=== PATIENT | female | born 1930 | race Caucasian/White ===

== ENCOUNTER 2017-12-30 10:50 | Emergency (ER) | payer OTHER ==
[2017-12-30 11:24] LABS: ADD MAN DIFF? NO
[2017-12-30 11:28] LABS: BASOPHILS % 0.1 % (0.0-2.0); EOSINOPHILS % 0.1 % (0.0-7.0); HEMATOCRIT 33.2 % (37.0-47.0); HEMOGLOBIN 9.7 g/dl (12.0-16.0); LYMPHOCYTES % 7.2 % (15.0-51.0); MEAN CORPUSCULAR HEMOGLOBIN 23.3 pg (29.0-33.0); MEAN CORPUSCULAR HGB CONC 29.2 g/dl (32.0-37.0); MEAN CORPUSCULAR VOLUME 79.8 fl (82.0-101.0); MEAN PLATELET VOLUME 10.7 fl (7.4-10.4); MONOCYTE # 1.4 10^3/ul (0.3-0.9); MONOCYTES % 9.7 % (0.0-11.0); NEUTROPHIL # 11.6 10^3/ul (1.6-7.5); NEUTROPHILS % 82.1 % (39.0-77.0); PLATELET COUNT 153 10^3/UL (140-415); RED BLOOD COUNT 4.16 10^6/ul (4.20-5.40); RED CELL DISTRIBUTION WIDTH 20.7 % (11.5-14.5)
[2017-12-30 11:28] LABS: WHITE BLOOD COUNT 14.1 10^3/ul (4.8-10.8)
[2017-12-30] MEDS: DILTIAZEM 50 MG INJ IV (11:49)
[2017-12-30 11:54] LABS: ANION GAP 16 (8-16); BLOOD UREA NITROGEN 64 mg/dl (7-20); CALCIUM 8.5 mg/dl (8.4-10.2); CARBON DIOXIDE 37 mmol/L (21-31); CHLORIDE 91 mmol/L (97-110); CREATININE 2.34 mg/dl (0.44-1.00); POTASSIUM 3.4 mmol/L (3.5-5.1); SODIUM 141 mmol/L (135-144)
[2017-12-30 11:58] LABS: GLUCOSE 407 mg/dl (70-220)
[2017-12-30 12:03] LABS: TROPONIN-I 0.042 ng/ml (0.000-0.120)
== END 2017-12-30 15:46 | disposition home or self-care (01) ==
LOC: E/R 10:50
DX: I48.91 Unspecified atrial fibrillation (principal); D64.9 Anemia, unspecified; I10 Essential (primary) hypertension; E11.9 Type 2 diabetes mellitus without complications; Z95.0 Presence of cardiac pacemaker
CPT/HCPCS: 36415; 71045; 80048; 84484; 85025; 96374; 99291-25; 99406

== ENCOUNTER 2018-01-07 11:43 | Inpatient (IN) | payer OTHER ==
[~2018-01-07 11:43] MED LIST: CA CHLORIDE 10% 10 ML SYRINGE; ETOMIDATE 20 MG INJ; NA BICARBONATE 8.4% 50 ML SYG; SUCCINYLCHOLINE CHLORIDE 100 MG/5 ML SYG IV
[2018-01-07] MEDS: AMIODARONE 150MG/D5W BOLUS 100 ML IV ×2 (12:08→12:45)
[2018-01-07 12:10] LABS: ADD MAN DIFF? NO
[2018-01-07 12:13] LABS: WHITE BLOOD COUNT 9.6 10^3/ul (4.8-10.8)
[2018-01-07 12:14] LABS: BASOPHILS % 0.2 % (0.0-2.0); EOSINOPHILS % 0.2 % (0.0-7.0); HEMATOCRIT 32.4 % (37.0-47.0); HEMOGLOBIN 9.5 g/dl (12.0-16.0); LYMPHOCYTES # 1.2 10^3/ul (0.8-2.9); LYMPHOCYTES % 12.1 % (15.0-51.0); MEAN CORPUSCULAR HEMOGLOBIN 23.2 pg (29.0-33.0); MEAN CORPUSCULAR HGB CONC 29.3 g/dl (32.0-37.0); MEAN CORPUSCULAR VOLUME 79.2 fl (82.0-101.0); MEAN PLATELET VOLUME 11.1 fl (7.4-10.4); MONOCYTE # 0.8 10^3/ul (0.3-0.9); MONOCYTES % 8.5 % (0.0-11.0); NEUTROPHIL # 7.5 10^3/ul (1.6-7.5); NEUTROPHILS % 78.4 % (39.0-77.0); PLATELET COUNT 224 10^3/UL (140-415); RED BLOOD COUNT 4.09 10^6/ul (4.20-5.40); RED CELL DISTRIBUTION WIDTH 20.3 % (11.5-14.5)
[2018-01-07 12:34] LABS: INR 1.67; PARTIAL THROMBOPLASTIN TIME 38.3 Sec (25.0-35.0); PT RATIO 1.6
[2018-01-07 12:37] LABS: MAGNESIUM 1.8 mg/dl (1.7-2.5)
[2018-01-07 12:39] LABS: ALBUMIN/GLOBULIN RATIO 0.76; ANION GAP 15 (8-16)
[2018-01-07 12:42] LABS: POTASSIUM 4.1 mmol/L (3.5-5.1); SODIUM 140 mmol/L (135-144)
[2018-01-07 12:43] LABS: ALANINE AMINOTRANSFERASE 24 IU/L (13-69); ALKALINE PHOSPHATASE 127 IU/L (42-121); ASPARTATE AMINO TRANSFERASE 15 IU/L (15-46); BILIRUBIN,INDIRECT 0.4 mg/dl (0-1.1); BILIRUBIN,TOTAL 0.4 mg/dl (0.2-1.3); BLOOD UREA NITROGEN 77 mg/dl (7-20); CALCIUM 8.4 mg/dl (8.4-10.2); CARBON DIOXIDE 32 mmol/L (21-31); CHLORIDE 97 mmol/L (97-110); CREATININE 2.47 mg/dl (0.44-1.00); GLUCOSE 328 mg/dl (70-220); TOTAL PROTEIN 6.9 g/dl (6.1-8.1)
[2018-01-07 12:50] LABS: B-TYPE NATRIURETIC PEPTIDE 22500 PG/ML (0-450); TROPONIN-I 0.029 ng/ml (0.000-0.120)
[2018-01-07] MEDS: SOD CHLORIDE 0.9% 500 ML IV ×2 (12:54→14:33)
[2018-01-07] MEDS: INSULIN LISPRO 100 UNIT/ML VIAL SC (14:03)
[2018-01-07] MEDS: AMIODARONE 900MG/D5W DRIP 500 ML IV ×2 (15:06→15:09)
[2018-01-07] MEDS: MAGNESIUM SULFATE 2 GM/50 ML 50 ML IVPB ×2 (15:10→17:00)
[2018-01-07] MEDS ORDERED: DEXTROSE 50% 50 ML SYRINGE IV ×3 (16:30→18:00)
[2018-01-07] MEDS ORDERED: GLUCAGON 1 MG INJ IM (16:30)
[2018-01-07] MEDS ORDERED: AMIODARONE 900 MG in DEXTROSE 5% 482 ML IV (16:30)
[2018-01-07] MEDS ORDERED: LORAZEPAM 2 MG INJ IV (16:30)
[2018-01-07] MEDS ORDERED: MAGNESIUM HYDROXIDE 30ML CUP PO (16:30)
[2018-01-07] MEDS ORDERED: morphine 2 MG INJ IV (16:30)
[2018-01-07] MEDS ORDERED: GLUCOSE GEL 15 GRAM TUBE BUCCAL (16:30)
[2018-01-07] MEDS ORDERED: NACL 0.9% 3 ML SYG IV (16:30)
[2018-01-07] MEDS ORDERED: ONDANSETRON 4 MG INJ IV (16:30)
[2018-01-07] MEDS ORDERED: BISACODYL (EC) 5 MG TAB PO (16:30)
[2018-01-07] MEDS ORDERED: ACETAMINOPHEN 325 MG TAB PO (16:30)
[2018-01-07] MEDS ORDERED: DOCUSATE SODIUM 100 MG CAP PO (16:30)
[2018-01-07] MEDS ORDERED: GLUCOSE GEL 15 GRAM TUBE PO ×2 (16:30)
[2018-01-07] MEDS ORDERED: HYDROCODONE/APAP (5/325) TAB PO (16:30)
[2018-01-07] MEDS ORDERED: METOPROLOL 5 MG INJ (16:48)
[2018-01-07] MEDS: METOPROLOL 5 MG INJ IV ×2 (16:52→17:05)
[2018-01-07 16:55] LABS: HEMOGLOBIN A1C 7.1 % (0-5.9)
[2018-01-07] MEDS: LIDOCAINE 2 GM/D5W 500 ML IV (17:00)
[2018-01-07] MEDS ORDERED: LIDOCAINE 2 GM/D5W 500 ML (17:01)
[2018-01-07] MEDS: LIDOCAINE 100 MG SYRINGE IV (17:05)
[2018-01-07] MEDS: SOD CHLORIDE 0.9% 250 ML IV (17:30)
[2018-01-07] MEDS: INSULIN ASPART [NOVOLOG] 3 ML PEN SC ×2 (17:35)
[2018-01-07] MEDS ORDERED: INSULIN ASPART [NOVOLOG] 3 ML PEN SC (18:00)
[2018-01-07] MEDS ORDERED: DOPamine-D5W 1.6 MG/ML 250 ML IV (18:00)
[2018-01-07] MEDS: VASOPRESSIN 60 UNIT in DEXTROSE 5% 57 ML IV (18:00)
[2018-01-07] MEDS: ACCU-CHEK XX ×6 (18:00→23:10)
[2018-01-07] MEDS: LORAZEPAM 2 MG INJ IV (18:19)
[2018-01-07 18:26] LABS: AADO2 Arterial 178.2 mmHg (7.0-24.0); Allen Test ACCEPTAB; Arterial Base Excess 2.2 mmol/L (-3.0-3); Arterial Blood Gas Oxygen Sat 99.7 mmHG (95.0-100.0); Arterial COHb 0.3 % (0.0-3.0); Arterial Fraction of Oxyhgb 99.4 % (93.0-99.0); Arterial HCO3 25.3 mmol/L (22.0-26.0); Arterial MetHb 0 % (0.0-1.5); Arterial Total Hemglobin 10.3 g/dl (12.0-18.0); Arterial pCO2 33.9 mmhg (35-45); MODE AMBU BAG; Site Right Radial
[2018-01-07] MEDS: FENTAnyl (DRIP) 1000 mcg/100mL 100 ML IV (19:23)
[2018-01-07] MEDS: INSULIN HUMAN REGULAR 100 UNIT in SOD CHLORIDE 0.9% 99 ML IV (19:28)
[2018-01-07] MEDS ORDERED: NORepinephrine 8MG/250 ML (PMX 250 ML (19:49)
[2018-01-07] MEDS: NORepinephrine 8MG/250 ML (PMX 250 ML IV (20:00)
[2018-01-07] MEDS ORDERED: INSULIN GLARGINE [LANtus] 3 ML PEN SC (20:00)
[2018-01-07] MEDS: SOD CHLORIDE 0.9% 1,000 ML IV ×2 (20:18→23:15)
[2018-01-07] MEDS: APIXABAN 5 MG TABLET PO (20:38)
[2018-01-07] MEDS: MEXILETINE 150 MG CAP PO (20:39)
[2018-01-07 20:53] LABS: AADO2 Arterial 195.3 mmHg (7.0-24.0); Allen Test ACCEPTAB; Arterial Blood Gas Oxygen Sat 99.7 mmHG (95.0-100.0); Arterial COHb 0.3 % (0.0-3.0); Arterial Fraction of Oxyhgb 99.3 % (93.0-99.0); Arterial HCO3 28.5 mmol/L (22.0-26.0); Arterial MetHb 0.1 % (0.0-1.5); Arterial Total Hemglobin 10.6 g/dl (12.0-18.0); Arterial pCO2 42.7 mmhg (35-45); MODE VENT - AC; Site Right Radial
[2018-01-07] MEDS ORDERED: PENDING SANTYL ORDER FOR WOUND CARE XX (22:00)
[2018-01-07] MEDS: PHENYLephrine 40 MG in DEXTROSE 5% 496 ML IV (22:41)
[2018-01-08] MEDS: LIDOCAINE 2 GM/D5W 500 ML IV (00:48)
[2018-01-08] MEDS: ACCU-CHEK XX ×15 (00:48→20:06)
[2018-01-08] MEDS ORDERED: ACCU-CHEK XX ×2 (02:00→16:00)
[2018-01-08] MEDS: SOD CHLORIDE 0.9% 500 ML IV (02:30)
[2018-01-08] MEDS: DEXTROSE 50% 50 ML SYRINGE IV (04:10)
[2018-01-08 05:08] LABS: ADD MAN DIFF? NO
[2018-01-08 05:11] LABS: ABNORMAL IP MESSAGE 1; BASOPHILS % 0.2 % (0.0-2.0); EOSINOPHILS # 0.1 10^3/ul (0.0-0.5); EOSINOPHILS % 0.7 % (0.0-7.0); HEMATOCRIT 30.7 % (37.0-47.0); HEMOGLOBIN 8.9 g/dl (12.0-16.0); LYMPHOCYTES % 16.2 % (15.0-51.0); MEAN CORPUSCULAR HEMOGLOBIN 23.1 pg (29.0-33.0); MEAN CORPUSCULAR VOLUME 79.5 fl (82.0-101.0); MONOCYTE # 0.9 10^3/ul (0.3-0.9); MONOCYTES % 7.5 % (0.0-11.0); NEUTROPHILS % 74.4 % (39.0-77.0); PLATELET COUNT 170 10^3/UL (140-415); RED BLOOD COUNT 3.86 10^6/ul (4.20-5.40); RED CELL DISTRIBUTION WIDTH 21.1 % (11.5-14.5)
[2018-01-08 05:11] LABS: WHITE BLOOD COUNT 12.1 10^3/ul (4.8-10.8)
[2018-01-08] MEDS: VASOPRESSIN 60 UNIT in DEXTROSE 5% 57 ML IV ×2 (05:25→18:00)
[2018-01-08] MEDS: MEXILETINE 150 MG CAP PO ×3 (05:26→22:32)
[2018-01-08] MEDS: PANTOPRAZOLE 40 MG INJ IV (05:26)
[2018-01-08 05:30] LABS: POSITIVE DIFF @See below
[2018-01-08 06:17] LABS: PHOSPHORUS 3.1 mg/dl (2.5-4.9)
[2018-01-08 06:18] LABS: ALANINE AMINOTRANSFERASE 26 IU/L (13-69); ALBUMIN 2.3 g/dl (3.3-4.9); ALBUMIN/GLOBULIN RATIO 0.71; ALKALINE PHOSPHATASE 103 IU/L (42-121); ANION GAP 6 (8-16); ASPARTATE AMINO TRANSFERASE 20 IU/L (15-46); BILIRUBIN,INDIRECT 0.2 mg/dl (0-1.1); BILIRUBIN,TOTAL 0.2 mg/dl (0.2-1.3); BLOOD UREA NITROGEN 75 mg/dl (7-20); CALCIUM 8.3 mg/dl (8.4-10.2); CARBON DIOXIDE 33 mmol/L (21-31); CHLORIDE 104 mmol/L (97-110); CHOL/HDL RATIO 4.3 RATIO; CHOLESTEROL 91 mg/dl (100-200); CREATININE 2.43 mg/dl (0.44-1.00); GLUCOSE 124 mg/dl (70-220); HDL CHOLESTEROL 21 mg/dl (33-92); LDL CHOLESTEROL,CALCULATED 52 mg/dl; MAGNESIUM 2.2 mg/dl (1.7-2.5); POTASSIUM 3.4 mmol/L (3.5-5.1); SODIUM 140 mmol/L (135-144); TOTAL PROTEIN 5.5 g/dl (6.1-8.1); TRIGLYCERIDES 92 mg/dl (0-149)
[2018-01-08] MEDS: POTASSIUM CHLORIDE 100 ML IVPB ×2 (08:15→12:19)
[2018-01-08 08:35] LABS: CREATININE,URINE RANDOM 84.27 mg/dl (20-320)
[2018-01-08 08:49] LABS: SODIUM,URINE RANDOM < 13 mmol/L (30-90)
[2018-01-08] MEDS ORDERED: FUROSEMIDE 40 MG TAB PO (09:00)
[2018-01-08] MEDS ORDERED: POTASSIUM CHLORIDE 20 MEQ POWDER FOR ORAL SOLN PO ×3 (09:00)
[2018-01-08] MEDS: POLYETHYLENE GLYCOL 17 GM PACKET PO (09:35)
[2018-01-08] MEDS: APIXABAN 5 MG TABLET PO ×2 (09:35→21:00)
[2018-01-08] MEDS: LORATADINE 10 MG TAB PO (09:37)
[2018-01-08] MEDS: DEXTROSE 5%-0.9% NACL 1,000 ML IV ×2 (09:38→12:19)
[2018-01-08] MEDS: FENTAnyl (DRIP) 1000 mcg/100mL 100 ML IV (15:10)
[2018-01-08] MEDS: SOD CHLORIDE 0.9% 1,000 ML IV (16:30)
[2018-01-08] MEDS ORDERED: morphine LIQ (10 MG/5 ML) CUP PO (19:30)
[2018-01-09] MEDS: LIDOCAINE 2 GM/D5W 500 ML IV ×2 (00:30→19:33)
[2018-01-09] MEDS: ACCU-CHEK XX ×2 (00:52→04:21)
[2018-01-09] MEDS: VASOPRESSIN 60 UNIT in DEXTROSE 5% 57 ML IV ×3 (00:52→19:34)
[2018-01-09] MEDS: DEXTROSE 5%-0.9% NACL 1,000 ML IV (04:21)
[2018-01-09 05:10] LABS: ADD MAN DIFF? NO
[2018-01-09 05:33] LABS: ABNORMAL IP MESSAGE 1; BASOPHILS % 0.2 % (0.0-2.0); EOSINOPHILS # 0.1 10^3/ul (0.0-0.5); EOSINOPHILS % 0.7 % (0.0-7.0); HEMATOCRIT 29.4 % (37.0-47.0); HEMOGLOBIN 8.7 g/dl (12.0-16.0); MEAN CORPUSCULAR HEMOGLOBIN 23.6 pg (29.0-33.0); MEAN CORPUSCULAR HGB CONC 29.6 g/dl (32.0-37.0); MEAN CORPUSCULAR VOLUME 79.7 fl (82.0-101.0); MONOCYTE # 0.7 10^3/ul (0.3-0.9); MONOCYTES % 5.1 % (0.0-11.0); NEUTROPHIL # 10.8 10^3/ul (1.6-7.5); NEUTROPHILS % 85.2 % (39.0-77.0); PLATELET COUNT 163 10^3/UL (140-415); RED BLOOD COUNT 3.69 10^6/ul (4.20-5.40); RED CELL DISTRIBUTION WIDTH 21.2 % (11.5-14.5)
[2018-01-09 05:33] LABS: WHITE BLOOD COUNT 12.7 10^3/ul (4.8-10.8)
[2018-01-09 05:41] LABS: POSITIVE DIFF @See below
[2018-01-09 05:58] LABS: ANION GAP 9 (8-16); BLOOD UREA NITROGEN 70 mg/dl (7-20); CALCIUM 7.9 mg/dl (8.4-10.2); CARBON DIOXIDE 30 mmol/L (21-31); CHLORIDE 106 mmol/L (97-110); GLUCOSE 121 mg/dl (70-220); MAGNESIUM 2.1 mg/dl (1.7-2.5); PHOSPHORUS 3.1 mg/dl (2.5-4.9); SODIUM 141 mmol/L (135-144)
[2018-01-09] MEDS: MEXILETINE 150 MG CAP PO ×3 (06:11→21:03)
[2018-01-09] MEDS: PANTOPRAZOLE 40 MG INJ IV (06:11)
[2018-01-09 07:25] LABS: AADO2 Arterial 97.6 mmHg (7.0-24.0); Allen Test ACCEPTAB; Arterial Base Excess 3.7 mmol/L (-3.0-3); Arterial Blood Gas Oxygen Sat 98.1 mmHG (95.0-100.0); Arterial COHb 0.3 % (0.0-3.0); Arterial Fraction of Oxyhgb 97.8 % (93.0-99.0); Arterial HCO3 26.7 mmol/L (22.0-26.0); Arterial MetHb 0 % (0.0-1.5); Arterial Total Hemglobin 9.5 g/dl (12.0-18.0); MODE VENT - AC; Site Right Radial
[2018-01-09 08:41] LABS: IRON 26 ug/dl (35-150)
[2018-01-09 08:50] LABS: % IRON SATURATION 11 % SAT (22-52)
[2018-01-09 08:52] LABS: TOTAL IRON BINDING CAPACITY 245 ug/dl (241-421)
[2018-01-09] MEDS ORDERED: GLUCOSE GEL 15 GRAM TUBE BUCCAL (09:30)
[2018-01-09] MEDS ORDERED: GLUCOSE GEL 15 GRAM TUBE PO ×2 (09:30)
[2018-01-09] MEDS ORDERED: GLUCAGON 1 MG INJ IM (09:30)
[2018-01-09] MEDS ORDERED: DEXTROSE 50% 50 ML SYRINGE IV ×2 (09:30)
[2018-01-09] MEDS: LORATADINE 10 MG TAB PO (10:12)
[2018-01-09] MEDS: APIXABAN 5 MG TABLET PO ×2 (10:12→21:03)
[2018-01-09] MEDS: POLYETHYLENE GLYCOL 17 GM PACKET PO (10:12)
[2018-01-09] MEDS: DEXTROSE 5% 1,000 ML IV (10:13)
[2018-01-09] MEDS: FUROSEMIDE 40 MG INJ IV (10:13)
[2018-01-09] MEDS: INSULIN ASPART [NOVOLOG] 3 ML PEN SC ×4 (10:15→21:39)
[2018-01-09] MEDS: NYSTATIN 30 GM POWDER BTL TOP ×2 (10:17→21:03)
[2018-01-09 12:47] LABS: AADO2 Arterial 85.8 mmHg (7.0-24.0); Allen Test ACCEPTAB; Arterial Base Excess 5.2 mmol/L (-3.0-3); Arterial COHb 0.3 % (0.0-3.0); Arterial Fraction of Oxyhgb 97.4 % (93.0-99.0); Arterial HCO3 29.9 mmol/L (22.0-26.0); Arterial MetHb 0.3 % (0.0-1.5); Arterial Total Hemglobin 9.9 g/dl (12.0-18.0); Arterial pCO2 44.9 mmhg (35-45); Blood Gas PS 10; MODE VENT - CPAP; Site Right Radial
[2018-01-09 14:08] LABS: CREATININE, RANDOM URINE 91 mg/dL (20-320); MICROALBUMIN 11.3 mg/dL; MICROALBUMIN/CREATININE RATIO 124 (<30)
[2018-01-10] MEDS: INSULIN ASPART [NOVOLOG] 3 ML PEN SC ×6 (03:04→21:11)
[2018-01-10] MEDS: DEXTROSE 5% 1,000 ML IV (04:34)
[2018-01-10 05:28] LABS: ADD MAN DIFF? NO
[2018-01-10] MEDS: PANTOPRAZOLE 40 MG INJ IV (05:33)
[2018-01-10] MEDS: MEXILETINE 150 MG CAP PO ×2 (05:34→14:20)
[2018-01-10 05:45] LABS: ABNORMAL IP MESSAGE 1; BASOPHILS % 0.2 % (0.0-2.0); EOSINOPHILS # 0.1 10^3/ul (0.0-0.5); EOSINOPHILS % 0.4 % (0.0-7.0); HEMATOCRIT 28.7 % (37.0-47.0); HEMOGLOBIN 8.3 g/dl (12.0-16.0); LYMPHOCYTES # 0.7 10^3/ul (0.8-2.9); LYMPHOCYTES % 4.9 % (15.0-51.0); MEAN CORPUSCULAR HEMOGLOBIN 23.4 pg (29.0-33.0); MEAN CORPUSCULAR HGB CONC 28.9 g/dl (32.0-37.0); MEAN CORPUSCULAR VOLUME 81.1 fl (82.0-101.0); MONOCYTE # 0.6 10^3/ul (0.3-0.9); MONOCYTES % 4.3 % (0.0-11.0); NEUTROPHIL # 13.3 10^3/ul (1.6-7.5); NEUTROPHILS % 89.5 % (39.0-77.0); RED BLOOD COUNT 3.54 10^6/ul (4.20-5.40); RED CELL DISTRIBUTION WIDTH 20.8 % (11.5-14.5)
[2018-01-10 05:45] LABS: WHITE BLOOD COUNT 14.8 10^3/ul (4.8-10.8)
[2018-01-10 05:59] LABS: PLATELET COUNT 113 10^3/UL (140-415)
[2018-01-10 06:00] LABS: POSITIVE DIFF @See below
[2018-01-10 06:01] LABS: ANION GAP 10 (8-16); BLOOD UREA NITROGEN 63 mg/dl (7-20); CALCIUM 7.8 mg/dl (8.4-10.2); CARBON DIOXIDE 31 mmol/L (21-31); CHLORIDE 106 mmol/L (97-110); CREATININE 2.39 mg/dl (0.44-1.00); GLUCOSE 192 mg/dl (70-220); MAGNESIUM 1.9 mg/dl (1.7-2.5); PHOSPHORUS 4.2 mg/dl (2.5-4.9); SODIUM 143 mmol/L (135-144)
[2018-01-10] MEDS: POLYETHYLENE GLYCOL 17 GM PACKET PO (08:23)
[2018-01-10] MEDS: APIXABAN 5 MG TABLET PO ×2 (08:24→21:18)
[2018-01-10] MEDS: LORATADINE 10 MG TAB PO (08:24)
[2018-01-10] MEDS: BALSAM PERU/CASTOR OIL 60 GM TUBE TOP (08:24)
[2018-01-10] MEDS: NYSTATIN 30 GM POWDER BTL TOP ×2 (08:24→21:18)
[2018-01-10] MEDS ORDERED: VANCOMYCIN IV PER PHARMACY XX (09:00)
[2018-01-10] MEDS: PIPER-TAZO 2.25 GM (PMX) 50 ML IVPB ×2 (09:43→14:20)
[2018-01-10] MEDS: MAGNESIUM SULFATE 2 GM/50 ML 50 ML IVPB (10:10)
[2018-01-10] MEDS: VANCOMYCIN 1.75 GM in SOD CHLORIDE 0.9% 500 ML IVPB (10:54)
[2018-01-10] MEDS: VASOPRESSIN 60 UNIT in DEXTROSE 5% 57 ML IV (17:55)
[2018-01-10] MEDS: NPH, HUMAN INSULIN ISOPHANE 3ML VIAL SC (21:15)
[2018-01-11] MEDS ORDERED: NPH, HUMAN INSULIN ISOPHANE 3ML VIAL SC (09:00)
[2018-01-12] MEDS ORDERED: VANCOMYCIN 1 GM 250 ML IVPB (12:00)
== END 2018-01-10 22:05 | disposition short-term general hospital (02) | DRG 308 ==
LOC: ICU 01-08 08:42 → E/R 11:43 → ICU 15:31
PROVIDERS: Internal Medicine
PROC: 0BH17EZ Insertion of Endotracheal Airway into Trachea, Via Natural or Artificial Opening (ICD-10-PCS; principal; 2018-01-07)
PROC: 5A1945Z Respiratory Ventilation, 24-96 Consecutive Hours (ICD-10-PCS; 2018-01-07)
PROC: 06HM33Z Insertion of Infusion Device into Right Femoral Vein, Percutaneous Approach (ICD-10-PCS; 2018-01-07)
DX: I47.2 Ventricular tachycardia (principal); J96.01 Acute respiratory failure with hypoxia; R57.0 Cardiogenic shock; G92 Toxic encephalopathy; N17.9 Acute kidney failure, unspecified; I13.0 Hypertensive heart and chronic kidney disease with heart failure and stage 1 through stage 4 chronic kidney disease, or unspecified chronic kidney disease; Z99.11 Dependence on respirator [ventilator] status; I42.9 Cardiomyopathy, unspecified; T82.897A Other specified complication of cardiac prosthetic devices, implants and grafts, initial encounter; I50.42 Chronic combined systolic (congestive) and diastolic (congestive) heart failure; N39.0 Urinary tract infection, site not specified; Z95.810 Presence of automatic (implantable) cardiac defibrillator; N18.9 Chronic kidney disease, unspecified; Z95.2 Presence of prosthetic heart valve; E78.5 Hyperlipidemia, unspecified; E87.6 Hypokalemia; D63.1 Anemia in chronic kidney disease; G40.909 Epilepsy, unspecified, not intractable, without status epilepticus; Z66 Do not resuscitate; R13.10 Dysphagia, unspecified; B96.20 Unspecified Escherichia coli [E. coli] as the cause of diseases classified elsewhere; I48.2 Chronic atrial fibrillation; E11.22 Type 2 diabetes mellitus with diabetic chronic kidney disease; E11.65 Type 2 diabetes mellitus with hyperglycemia; Z79.4 Long term (current) use of insulin
CPT/HCPCS: 31500; 36415; 36600; 71045; 76775; 80048; 80053; 80061; 81003; 82043; 82803; 82962; 83036; 83540; 83735; 83880; 84100; 84155; 84300; 84443; 84484; 85025; 85610; 85730; 87040; 87081; 87086; 92610; 93005; 93306; 94002; 94003; 94770; 96361; 96365; 96368; 96372; 96376; 99291-25; J2001